=== PATIENT | female | born 1970 | race Caucasian/White ===

== ENCOUNTER 2016-10-28 14:59 | Emergency (ER) | payer OTHER ==
[2016-10-28 15:19] VITALS: RESP 16; O2SAT 96
--- NOTE | 2016-10-28 15:31 | UCPHY ---
H & P Patient Type: Established Chief Complaint Nursing Narrative: last night started having right hand swelling and breathing issues. after preparing and eating bok jeannie.today right hand starting to swell. Denies previous history of allergies. Took benadryl po last pm and 4am . Albuterol inh from HPI/ROS: CHIEF COMPLAINT: Right hand swelling. HISTORY OF PRESENT ILLNESS: The patient is a 46-year-old female who presents with right hand swelling since last night while chopping up bok jeannie. She initially developed a pruritic rash and swelling in the palm of her right hand and then became short of breath. She had to use her 's Albuterol inhaler and Benadryl. The swelling worsened throughout the night and is now present on the palm of her left hand. She had no lip swelling, tongue swelling, throat swelling, or difficulty swallowing. She denies associated nausea, vomiting, abdominal pain. She has had cold symptoms for the past week including nasal congestion and rhinorrhea but no fever. REVIEW OF SYSTEMS: Aside from elements discussed in the HPI, a comprehensive 10-point review of systems was reviewed and is negative. PAST MEDICAL HISTORY: Breast tumorectomy, endometriosis. SOCIAL HISTORY: , here alone. VITAL SIGNS: Reviewed by me GENERAL: Well-developed, well-nourished, resting comfortably in no respiratory distress. HEENT: Atraumatic. Eyes: No icterus, no injection. Mouth: moist mucous membranes. No erythema or lesions. Neck: supple with no adenopathy. LUNGS: Clear to auscultation bilaterally, no wheezes, rhonchi or rales. CARDIAC: Regular rate and rhythm, no rubs, murmurs or gallops. ABDOMEN: Soft, nontender, nondistended, bowel sounds normal. BACK: No CVA tenderness. EXTREMITIES: No trauma. No edema. Range of motion is normal throughout. NEURO: Alert and oriented, grossly nonfocal. SKIN: Erythema and swelling of right hand. Small amount of erythema and swelling to the palmar aspect of left hand. Erythema in lymphangitic pattern up right forearm. Warm and dry. PSYCHIATRIC: Normal mentation, no agitation. Portions of this note were transcribed by a medical surgery nurse. I personally performed a history, physical exam, medical decision making, and confirmed accuracy of information the transcribed note. Source: Patient Exam Limitations: No limitations - Personal History LMP (Females 10-55): Unknown Tetanus Vaccine Date: LESS THAN 10 YEARS AGO - Medical/Surgical History Hx Asthma: No Hx Chronic Respiratory Disease: No Hx Diabetes: No Hx Cardiac Disease: No Hx Renal Disease: No Hx Cirrhosis: No Hx Alcoholism: No Hx HIV/AIDS: No Hx Splenectomy or Spleen Trauma: No Other PMH: PCP [facility]. Breast tumorectomy. Emdometriosis - Social History Smoking Status: Former smoker Constitutional: Initial Vital Signs Temperature (C) 36.8 C 10/28/16 15:10 Heart Rate 89 10/28/16 15:10 Respiratory Rate 16 10/28/16 15:10 Blood Pressure 135/75 H 10/28/16 15:10 O2 Sat (%) 96 10/28/16 15:10 O2 Delivery Mode Room Air Allergies/Adverse Reactions: No Known Allergies Allergy (Verified 10/28/16 15:19) Home Medications: Medication Instructions Recorded Bcp 09/20/13 Medical Decision Making ED Course/Re-evaluation: An IV was established and labs ordered. Report Scribed for: Mayda Trinh Report Scribed by: Nitesh Mcdonald Date of Report: 10/28/16 Time of Report: 15:27
[2016-10-28] MEDS ORDERED: methylPREDNISolone SOD SUCC 125 MG/2 ML VIAL IVP ONE (15:36)
[2016-10-28] MEDS ORDERED: ALBUTEROL 3 ML DEYVIAL IH ONE (15:36)
[2016-10-28] MEDS ORDERED: NS 1,000 ML IV ONE (15:36)
--- NOTE | 2016-10-28 15:37 | UCPHY ---
H & P Patient Type: Established HPI/ROS: CHIEF COMPLAINT: Right hand swelling. HISTORY OF PRESENT ILLNESS: The patient is a 46-year-old female who presents with right hand swelling since last night while chopping up bok jeannie. She initially developed a pruritic rash and swelling in the palm of her right hand and then became short of breath. She had to use her 's Albuterol inhaler and Benadryl. The swelling worsened throughout the night and is now present on the palm of her left hand. She had no lip swelling, tongue swelling, throat swelling, or difficulty swallowing. She denies associated nausea, vomiting, abdominal pain. She has had cold symptoms for the past week including nasal congestion and rhinorrhea but no fever. REVIEW OF SYSTEMS: Aside from elements discussed in the HPI, a comprehensive 10-point review of systems was reviewed and is negative. PAST MEDICAL HISTORY: Breast tumorectomy, endometriosis. SOCIAL HISTORY: , here alone. VITAL SIGNS: Reviewed by me GENERAL: Well-developed, well-nourished, resting comfortably in no respiratory distress. HEENT: Atraumatic. Eyes: No icterus, no injection. Mouth: moist mucous membranes. No erythema or lesions. Neck: supple with no adenopathy. LUNGS: Clear to auscultation bilaterally, no wheezes, rhonchi or rales. CARDIAC: Regular rate and rhythm, no rubs, murmurs or gallops. ABDOMEN: Soft, nontender, nondistended, bowel sounds normal. BACK: No CVA tenderness. EXTREMITIES: No trauma. No edema. Range of motion is normal throughout. NEURO: Alert and oriented, grossly nonfocal. SKIN: Diffuse erythema and swelling of palmar and dorsal aspect of right hand. Small amount of erythema and swelling to the palmar aspect of left hand. Erythema in lymphangitic pattern to the right middle upper arm. No urticaria. Warm and dry. PSYCHIATRIC: Normal mentation, no agitation. Portions of this note were transcribed by a medical stenographer. I personally performed a history, physical exam, medical decision making, and confirmed accuracy of information the transcribed note. Smoking Status: Former smoker Constitutional: Initial Vital Signs Temperature (C) 36.8 C 10/28/16 15:10 Heart Rate 89 10/28/16 15:10 Respiratory Rate 16 10/28/16 15:10 Blood Pressure 135/75 H 10/28/16 15:10 O2 Sat (%) 96 10/28/16 15:10 O2 Delivery Mode Room Air Allergies/Adverse Reactions: No Known Allergies Allergy (Verified 10/28/16 15:19) Home Medications: Medication Instructions Recorded Bcp 09/20/13 predniSONE 40 mg PO DAILY #6 tab 10/28/16 Medical Decision Making - Diagnostics Imaging: X-ray of the chest was obtained. I viewed the images myself on the PACS system. The radiologist interpretation is: Clear lungs. No edema or acute process. I discussed the x-ray findings with the patient. ED Course/Re-evaluation: An IV was established and labs ordered. Chest x-ray ordered. 50mg IV Benadryl, 1L IV saline, 125mg IV Solu-Medrol, .3ml IM Epinephrine, 3ml IH Albuterol neb administered for allergic reaction. Patient's WBC elevated at 14.33. Patient was reexamined at 4:40 p.m.: After treatment for an allergic reaction the erythema and swelling in both hands has significantly decreased. The streaks on her forearm are improved. She reports feeling less itchy on the hands. She has no signs of flexor tenosynovitis. No significant pain with extension of the fingers. The course was discussed with Dr. Ny from Infectious Disease. Patient's presentation is interesting. I would not expect her streaky erythema of the upper extremities to resolved with allergic reaction treatment, however, I would not expect an allergic reaction to be associated with erythematous streaks similar to lymphangitis. Decision was made to treat the patient with a dose of ceftriaxone in order to cover for any strep infection which would be most likely to cause lymphangitis. Patient will be discharged with treatment for allergic reactions. She is to return tomorrow without fail to urgent care for re-examination. Patient is comfortable with the plan. On examination at discharge patient's erythema has continued to resolve. The itchiness has also resolved. Differential Diagnosis: Differential diagnoses for the patient's symptom complex was considered including but not limited to contact allergy, allergic reaction, local allergic reaction, histamine reaction, cellulitis, deep space infection, lymphangitic spread. - Data Points Laboratory Results: Laboratory Results 10/28/16 16:10 10/28/16 16:10 10/28/16 16:10 WBC 14.33 H 10^3/uL (3.80-9.50) RBC 4.92 10^6/uL (4.18-5.33) Hgb 14.0 g/dL (12.6-16.3) Hct 41.6 % (38.0-47.0) MCV 84.6 fL (81.5-99.8) MCH 28.5 pg (27.9-34.1) MCHC 33.7 g/dL (32.4-36.7) RDW 12.8 % (11.5-15.2) Plt Count 439 H 10^3/uL (150-400) MPV 10.1 fL (8.7-11.7) Neut % (Auto) 62.0 % (39.3-74.2) Lymph % (Auto) 27.1 % (15.0-45.0) [place] % (Auto) 7.1 % (4.5-13.0) Eos % (Auto) 3.2 % (0.6-7.6) Baso % (Auto) 0.3 % (0.3-1.7) Nucleat RBC Rel Count 0.0 % (0.0-0.2) Absolute Neuts (auto) 8.87 H 10^3/uL (1.70-6.50) Absolute Lymphs (auto) 3.88 H 10^3/uL (1.00-3.00) Absolute Monos (auto) 1.02 H 10^3/uL (0.30-0.80) Absolute Eos (auto) 0.46 H 10^3/uL (0.03-0.40) Absolute Basos (auto) 0.05 10^3/uL (0.02-0.10) Absolute Nucleated RBC 0.00 10^3/uL (0-0.01) Immature Gran % 0.3 % (0.0-1.1) Immature Gran # 0.05 10^3/uL (0.00-0.10) Sodium 137 mEq/L (134-144) Potassium 3.6 mEq/L (3.5-5.2) Chloride 103 mEq/L (97-110) Carbon Dioxide 23 mEq/l (22-31) Anion Gap 11 mEq/L (8-16) BUN 11 mg/dL (7-23) Creatinine 0.7 mg/dL (0.6-1.0) Estimated GFR > 60 Glucose 93 mg/dL (70-100) Calcium 9.3 mg/dL (8.5-10.4) Medications Given: Discontinued Medications Albuterol (Proventil Neb) 3 ml IH EDNOW ONE Stop: 10/28/16 15:37 Last Admin: 10/28/16 16:14 Dose: 3 ml Diphenhydramine HCl (Benadryl Injection) 50 mg IVP EDNOW ONE Stop: 10/28/16 15:37 Last Admin: 10/28/16 16:15 Dose: 50 mg Epinephrine HCl (Epinephrine) 0.3 mg IM EDNOW ONE Stop: 10/28/16 15:38 Last Admin: 10/28/16 16:15 Dose: 0.3 mg Famotidine (Pepcid) 40 mg PO EDNOW ONE Stop: 10/28/16 18:21 Last Admin: 10/28/16 18:28 Dose: 40 mg Sodium Chloride (Ns) 1,000 mls @ 0 mls/hr IV ONCE ONE PRN Reason: Wide Open Stop: 10/28/16 15:37 Last Admin: 10/28/16 16:16 Dose: 1,000 mls Ceftriaxone Sodium 1 gm/ (Sodium Chloride) 100 mls @ 200 mls/hr IV EDNOW ONE PRN Reason: Protocol Stop: 10/28/16 17:36 Last Admin: 10/28/16 17:27 Dose: 100 mls Methylprednisolone Sodium Succinate (Solu-Medrol) 125 mg IVP EDNOW ONE Stop: 10/28/16 15:37 Last Admin: 10/28/16 16:16 Dose: 125 mg Departure - Departure Disposition: Home, Routine, Self-Care Clinical Impression: Anaphylaxis, Food allergy Condition: Good Instructions: Food Allergy (ED) Additional Instructions: I suspect that your symptoms are caused by a local allergic reaction. There is a chance that this may have an infection in her hand. We gave a dose of ceftriaxone which will provide antibiotic coverage for 24 hours. We would ask that you continue to be aggressive with treatment for an allergic reaction. You will need to take antihistamines to control symptoms of swelling and itching and redness. When your antihistamine begins to wear off, you may need to take repeat doses. The most common antihistamine is diphenhydramine ( Benadryl). Dose is 25-50 mg every 6-8 hours as needed for itching and rash. Diphenhydramine can be sedating. Another type of antihistamine is loratadine (Claritin). This is taken once a day. It is not sedating. Repeat doses of antihistamines may be needed as the swelling and itching will come and go over the next several days. You may notice that the your symptoms are worse after exposure to heat, warm showers, or exertion. The 2nd medication I would like you to take is Pepcid which is another type of an antihistamine. Dose is 20 mg once a day for 3 days. This should be taken on a regular basis. The 3rd medication is prednisone, which is a steroid. The dose is 40 mg a day x3 doses. Please take this as instructed. Return to Urgent Care tomorrow for re examination. Return to Urgent Care urgently if you develop fever, significant worsening of the hand swelling or redness, difficulty breathing, wheezing, swelling of her face, or other concerns. Referrals: [place],. [Primary Care Provider] - As per Instructions Prescriptions: predniSONE 40 mg PO DAILY #6 tab - PQRS PQRS Measurement: Not applicable. Report Scribed for: Mayda Trinh Report Scribed by: Nitesh Mcdonald Date of Report: 10/28/16 Time of Report: 15:35
--- NOTE | 2016-10-28 16:09 | DX ---
PA and Lateral Chest October 28, 2016 Indication: Pain. Swollen hands. Possible allergic reaction. Comparison: None Findings: The lungs are well aerated and clear. No pulmonary edema, consolidation, mass or effusion. Heart size is normal. Minimal degenerative disk disease is present throughout the midthoracic spine. Impression: Clear lungs. No edema or acute process.
[2016-10-28 16:17] LABS: % IMMATURE GRANULYOCYTES 0.3 % (0.0-1.1); ABSOLUTE IMMATURE GRANULOCYTES 0.05 10^3/uL (0.00-0.10); ADD DIFF? NO; ADD MORPH? NO; ADD SCAN? NO; ATYPICAL LYMPHOCYTE FLAG 10 (0-99); FRAGMENT RBC FLAG 0 (0-99); HEMATOCRIT 41.6 % (38.0-47.0); LEFT SHIFT FLG 0 (0-99); LIPEMIA HEMOLYSIS FLAG 80 (0-99); MEAN CELL HEMOGLOBIN 28.5 pg (27.9-34.1); MEAN CELL HEMOGLOBIN CONCENTR. 33.7 g/dL (32.4-36.7); MEAN CELL VOLUME 84.6 fL (81.5-99.8); MEAN PLATELET VOLUME 10.1 fL (8.7-11.7); PLATELET CLUMPS FLAG 0 (0-99); PLATELET COUNT 439 10^3/uL (150-400); RED BLOOD CELL COUNT 4.92 10^6/uL (4.18-5.33); RED CELL DISTRIBUTION WIDTH 12.8 % (11.5-15.2)
[2016-10-28 16:29] LABS: ANION GAP 11 mEq/L (8-16); CALCIUM 9.3 mg/dL (8.5-10.4); CARBON DIOXIDE 23 mEq/l (22-31); CHLORIDE 103 mEq/L (97-110); CREATININE 0.7 mg/dL (0.6-1.0); GLOMERULAR FILTRATION RATE > 60; GLUCOSE 93 mg/dL (70-100); POTASSIUM 3.6 mEq/L (3.5-5.2); SODIUM 137 mEq/L (134-144)
[2016-10-28 17:53] VITALS: BP 123/74; PULSE 94; TEMP 97.9
[2016-10-28] MEDS ORDERED: FAMOTIDINE 20 MG TAB PO ONE (18:20)
== END 2016-10-28 18:28 | disposition home or self-care (01) ==
LOC: CED 14:59
DX: T78.04XA Anaphylactic reaction due to fruits and vegetables, initial encounter (principal); Z87.891 Personal history of nicotine dependence; Z91.018 Allergy to other foods
CPT/HCPCS: 71020-PO; 80048-PO; 85025-PO; 96361-PO; 96365-PO; 96372-PO; 96375-PO; 99215-PO; G0463-PO

== ENCOUNTER → 2018-02-24 | Outpatient (CLI) | payer OTHER ==
[~2018-02-24] MED LIST: GADOBUTROL 10 ML VIAL IVP ONE
== END ==
LOC: FIMAGING 10:23
PROVIDERS: ATTEND Obstetrics & Gynecology
DX: N60.82 Other benign mammary dysplasias of left breast (principal)
CPT/HCPCS: 0159T; A9585; C8908